=== PATIENT | female | born 1970 | race African-American/Black ===

== ENCOUNTER 2019-08-06 21:43 | Emergency (ER) | payer OTHER ==
[~2019-08-06] VITALS: Ht 172.7 cm; Wt 59.0 kg
[2019-08-06] MEDS ORDERED: ALBUTEROL (0.083%) 2.5MG/3ML NEB HHN STA (23:19)
[2019-08-06] MEDS ORDERED: IPRATROPIUM BROMIDE (0.02%) 0.5MG/2.5ML NEB HHN STA (23:19)
[2019-08-06] MEDS ORDERED: IPRATROPIUM BROMIDE (0.02%) 0.5MG/2.5ML NEB HHN ONE (23:30)
[2019-08-06] MEDS ORDERED: MAGNESIUM 2 G PREMIX 50 ML IV ONE (23:30)
[2019-08-06] MEDS ORDERED: DEXAMETHASONE 4MG/ML 1ML VIAL IV ONE (23:30)
[2019-08-06 23:36] LABS: BASOPHILS % 0.9 % (0.0-2.0); EOSINOPHILS % 8.9 % (0.0-5.0); HEMATOCRIT. 27.9 % (36.0-48.0); LYMPHOCYTES % 17.3 % (20.0-50.0); MEAN CORPUSCULAR HEMOGLOBIN 18.4 pg (28.0-32.0); MEAN CORPUSCULAR VOLUME 63.9 fL (81.0-99.0); MEAN PLATELET VOLUME 8.5 fl (7.4-10.4); MONOCYTES % 7.2 % (2.0-8.0); NEUTROPHILS % 65.7 % (40.0-76.0); PLATELET 392 x1000/uL (130-400); RED BLOOD CELL COUNT 4.37 mill/uL (4.2-5.4); RED CELL DISTRIBUTION WIDTH 22.6 % (11.6-14.6)
[2019-08-06 23:39] LABS: PLATELET ESTIMATE NORMAL
[2019-08-06 23:40] LABS: CHLORIDE 107 mEq/L (98-107)
[2019-08-07 03:05] VITALS: BP 156/81
== END 2019-08-07 03:19 | disposition short-term general hospital (02) ==
LOC: ER 21:43
DX: J45.901 Unspecified asthma with (acute) exacerbation (principal)
CPT/HCPCS: 36415; 71045; 80048; 85025; 93005; 94640; 96365; 96375; 99285; J1100; J3475; J7611; Z7610